=== PATIENT | female | born 1995 | race Caucasian/White ===

== ENCOUNTER 2019-09-14 10:24 | Observation (INO) | payer MEDICAID, OTHER ==
[2019-09-14] VITALS (17 sets, daily range): BP systolic 112–130; BP diastolic 64–78
[~2019-09-14] VITALS: Ht 177.8 cm; Wt 113.6 kg
[~2019-09-14 10:24] MED LIST: KEP500T PO; NO HOME MEDS; [UNRECOGNIZED DRUG - CODE] PO
[2019-09-14] MEDS ORDERED: ondansetron/PF 4mg/2ml inj IV ONE (10:50)
[2019-09-14] MEDS ORDERED: normal saline 1000ML IV soln IVB ONE (10:50)
[2019-09-14 11:24] LABS: BASOPHILS # (AUTO) 0.1 X10'3 (0-0.2); BASOPHILS % (AUTO) 0.9 % (0-1); EOSINOPHILS # (AUTO) 0.1 X10'3 (0-0.9); EOSINOPHILS % (AUTO) 0.7 % (0-6); HEMATOCRIT 40.3 % (35.0-45.0); HEMOGLOBIN 13.6 g/dl (12.0-16.0); LYMPHOCYTES % (AUTO) 18.7 % (21-51); MEAN CORPUSCULAR HEMOGLOBIN 28.7 PG (27.0-31.0); MEAN CORPUSCULAR HGB CONC 33.8 g/dL (33.0-36.5); MEAN PLATELET VOLUME 7.8 FL (7.4-10.4); MONOCYTES # (AUTO) 0.6 X10'3 (0-0.9); MONOCYTES % (AUTO) 3.9 % (2-12); NEUTROPHILS # (AUTO) 12.2 X10'3 (1.8-7.7); NEUTROPHILS % (AUTO) 75.8 % (42-75); PLATELET COUNT 295 X10'3 (140-440); RED BLOOD COUNT 4.74 X10'6 (4.20-5.60); RED CELL DISTRIBUTION WIDTH 12.7 % (11.5-14.5); WHITE BLOOD COUNT 16.1 X10'3 (4.5-11.0)
[2019-09-14 11:27] LABS: CLARITY,URINE SLIGHTLY CLOUDY (Clear); COLOR,URINE YELLOW (Yellow); GLUCOSE, URINE NEGATIVE (Neg); KETONES,URINE NEGATIVE (Neg); LEUKOCYTE ESTERASE ,URINE NEGATIVE (Neg); NITRITES, URINE NEGATIVE (Neg); OCCULT BLOOD,URINE NEGATIVE (Neg); PROTEIN,URINE NEGATIVE (Neg); UROBILINOGEN,URINE 0.2 E.U/dL (0.2-1.0)
[2019-09-14 11:30] LABS: URINE HCG NEGATIVE (NEG)
[2019-09-14 11:32] LABS: UA COLLECTION TYPE CLN CATCH MIDSTREAM
[2019-09-14 11:35] LABS: BACTERIA,URINE 2+ /HPF (Neg); MUCUS STRANDS MODERATE /LPF (Neg); RBC,URINE 0-2 /HPF (0-2); SQUAMOUS EPITHELIAL CELL,UR MANY /LPF (FEW); WBC,URINE 0-4 /HPF (0-4)
[2019-09-14 11:39] LABS: ALANINE AMINOTRANSFERASE 23 U/L (12-78); ALBUMIN 3.6 G/DL (3.4-5.0); ALBUMIN/GLOBULIN RATIO 0.8 (1.1-1.5); ALKALINE PHOSPHATASE 89 IU/L (46-116); ANION GAP 10 (8-16); ASPARTATE AMINO TRANSFERASE 15 U/L (10-37); BILIRUBIN,TOTAL 0.5 MG/DL (0.1-1.0); BLOOD UREA NITROGEN 10 MG/DL (7-18); BUN/CREATININE RATIO 12.7 (6.6-38.0); CALCIUM 8.8 MG/DL (8.5-10.1); CHLORIDE 103 MMOL/L (99-107); CREATININE 0.79 MG/DL (0.40-0.90); GLUCOSE 98 MG/DL (70-104); LIPASE 71 U/L (73-393); POTASSIUM 3.7 MMOL/L (3.5-5.1); SODIUM 138 MMOL/L (135-145); TOTAL CARBON DIOXIDE 25.4 MMOL/L (24-32); TOTAL PROTEIN 8.1 G/DL (6.4-8.2); eGFR 90 ML/MIN
[2019-09-14] MEDS ORDERED: ketorolac trometh. 30mg/ml inj. IV ONE (12:00)
[2019-09-14] MEDS ORDERED: piperacillin/tazo 3.375gm/50ml 50 ML IV ONE (12:15)
[2019-09-14] MEDS ORDERED: normal saline 1000ML IV soln IV ONE (12:15)
[2019-09-14] MEDS ORDERED: normal saline 1000ml 1,000 ML IV SCH (12:33)
[2019-09-14] MEDS ORDERED: ondansetron/PF 4mg/2ml inj IV PRN ×2 (12:35→13:20)
[2019-09-14] MEDS ORDERED: magnesium Cl slow-release 64mg tablet PO PRN (12:35)
[2019-09-14] MEDS ORDERED: magnesium 4gm in 100ml NS 100 ML IV PRN (12:35)
[2019-09-14] MEDS ORDERED: magnesium 2GM in 50ml NS 50 ML IV PRN (12:35)
[2019-09-14] MEDS ORDERED: potassium CL 10mEq/100ml bag 100 ML IV PRN ×2 (12:35)
[2019-09-14] MEDS ORDERED: potassium Cl 20 mEq SR tablet PO PRN ×2 (12:35)
[2019-09-14 12:58] LABS: PRE OP PROTIME 10.3 SECONDS (9.0-12.0)
[2019-09-14] MEDS ORDERED: ringers solution, lacted 1,000 ML IV SCH (13:16)
[2019-09-14] MEDS ORDERED: morphine 2 MG/ML inj. syringe IV PRN (13:20)
[2019-09-14] MEDS ORDERED: hydrALAZINE 20mg/ml inj. IV PRN (13:20)
[2019-09-14] MEDS ORDERED: labetalol 20mg/4ml (5mg/ml) syringe IV PRN (13:20)
[2019-09-14] MEDS ORDERED: fentaNYL/PF 50MCG/1 ML 2ML syringe IV PRN ×2 (13:20)
[2019-09-14] MEDS ORDERED: morphine 4 MG/ML inj SYRINge IV PRN (13:20)
[2019-09-14] MEDS ORDERED: BUPIVAcaine/PF 2.5 mg/ml (0.25%) 30ml vial ONE (13:39)
[2019-09-14] MEDS ORDERED: midazolam 2 mg/2 ml injection ONE (14:03)
[2019-09-14] MEDS ORDERED: LIDOcaine 2% (20mg/ml) 5ml vial ONE (14:04)
[2019-09-14] MEDS ORDERED: dexamethasone sod phosphate 4mg/ml inj. ONE (14:04)
[2019-09-14] MEDS ORDERED: rocuronium 10mg/ml inj IV ONE (14:04)
[2019-09-14] MEDS ORDERED: propofol inj 20 ML IV ONE (14:04)
[2019-09-14] MEDS ORDERED: morphine 10mg/ml inj. ONE (14:04)
[2019-09-14] MEDS ORDERED: glycopyrrolate 0.2mg/ml inj ONE (14:04)
[2019-09-14] MEDS ORDERED: ondansetron/PF 4mg/2ml inj ONE (14:07)
[2019-09-14] MEDS ORDERED: neostigmine methylsulfate 1 MG/ML 10ml vial ONE (14:08)
[2019-09-14] MEDS ORDERED: fentaNYL/PF 50MCG/1 ML 2ML syringe ONE (14:43)
--- NOTE | 2019-09-14 14:49 | NUR ---
Received from OR via [facility], accompanied by Anesthesiologist DR ARREDONDO and report given by Anesthesiologist. PT DROWSY, DENIES PAIN, ABDOMEN W/3 LAP SITES W/BANDAIDS CDI. Addendum: 09/14/19 at 1650 by Alma Beltran RN Amended: Links added.
--- NOTE | 2019-09-14 16:29 | NUR ---
Report called to receiving nurse. Transferred via [facility], 1 BAG OF PERSONAL Belongings, BROWN PURSE, CELL PHONE, I-PAD SENT W/PT TO ROOM 348A, PT WAS ABLE TO AMBULATE FROM GURNEY TO BED W/O DIFFICULTY, CALL LIGHT GIVEN, BLL, SIDE RAILS UP X 2, PT ORIENTED TO SAFETY AND ROOM, RECEIVING RN AT BEDSIDE TO RECEIVE PT. Special Issues communicated to receiving nurse. YES. Addendum: 09/14/19 at 1657 by Alma Beltran RN Amended: Links added.
--- NOTE | 2019-09-14 16:30 | NUR ---
received Pt via [facility] from recovery awake and alert. Pt amb from door to bed. Call light in reach bed low, discussed post op POC. Pt wishes to be DC when criteria met. Dr Serrato and Dr Mccarty OK'd for DC if pt want to.
[2019-09-14] MEDS ORDERED: HYDROcodone/acetaminophen 5mg/325mg tablet PO PRN (16:35)
--- NOTE | 2019-09-14 17:54 | NUR ---
Problems reprioritized. Patient report given, questions answered & plan of care reviewed with Alejandra RN.
--- NOTE | 2019-09-14 19:30 | NUR ---
PATIENT STABLE AND APPROPRIATE FOR DISCHARGE HOME. IV REMOVED, ALL BELONGINGS TAKEN FROM THE ROOM. DC INSTRUCTIONS GIVEN AND REVIEWED WITH PATIENT.
[2019-09-14] MEDS ORDERED: K and/or MAG REPLACEMENT MC SCH (20:00)
== END 2019-09-14 19:20 | disposition home or self-care (01) ==
LOC: ER 10:25 → INTOOBSV 12:33 → ED HOLD 12:33 → SUR 3N 16:25
PROVIDERS: ADMIT Internal Medicine; ATTEND Internal Medicine
DX: K35.80 Unspecified acute appendicitis (principal); R11.2 Nausea with vomiting, unspecified; R19.7 Diarrhea, unspecified; G40.909 Epilepsy, unspecified, not intractable, without status epilepticus; F32.9 Major depressive disorder, single episode, unspecified; Z79.899 Other long term (current) drug therapy
CPT/HCPCS: 36415; 44970; 71045; 74176; 76700; 80053; 81001; 81025; 83605; 83690; 84145; 85025; 85610; 86885; 86900; 86901; 87040; 87081; 96361; 96365; 96375; 99285; G0378; J1100; J1885; J2001; J2250; J2270; J2405; J2543; J2704; J2710; J3010; J3490; J7030; J7120; A4215; A4618; A7000

== ENCOUNTER 2023-01-16 22:54 | Emergency (ER) | payer SELFPAY ==
[~2023-01-16] VITALS: Ht 177.8 cm; Wt 62.3 kg
[~2023-01-16 22:54] MED LIST changes: -KEP500T PO; -[UNRECOGNIZED DRUG - CODE] PO
[2023-01-16 22:55] VITALS: TEMP 97.8
[2023-01-16] MEDS ORDERED: normal saline 1000ML IV soln IVB ONE (23:05)
[2023-01-16] MEDS ORDERED: ondansetron/PF 4mg/2ml inj IV ONE (23:05)
[2023-01-16] MEDS ORDERED: LIDOcaine Viscous 15ml cup MM PRN (23:10)
[2023-01-16] MEDS ORDERED: mag hydrox/Alum hydrox/simeth 30ml oral suspension PO ONE (23:10)
[2023-01-16] MEDS ORDERED: famotidine 20mg tablet PO ONE (23:10)
[2023-01-16 23:53] LABS: BASOPHILS # (AUTO) 0.1 X10'3 (0-0.2); BASOPHILS % (AUTO) 0.3 % (0-1); EOSINOPHILS # (AUTO) 0.2 X10'3 (0-0.9); EOSINOPHILS % (AUTO) 0.8 % (0-6); HEMATOCRIT 42.6 % (35.0-45.0); HEMOGLOBIN 13.8 g/dl (12.0-16.0); LYMPHOCYTES # (AUTO) 1.3 X10'3 (1.1-4.8); LYMPHOCYTES % (AUTO) 7.1 % (21-51); MEAN CORPUSCULAR HEMOGLOBIN 25.7 PG (27.0-31.0); MEAN CORPUSCULAR HGB CONC 32.4 g/dL (33.0-36.5); MEAN CORPUSCULAR VOLUME 79.4 FL (78-98); MEAN PLATELET VOLUME 7.8 FL (7.4-10.4); MONOCYTES # (AUTO) 0.9 X10'3 (0-0.9); NEUTROPHILS # (AUTO) 16.4 X10'3 (1.8-7.7); NEUTROPHILS % (AUTO) 86.8 % (42-75); PLATELET COUNT 349 X10'3 (140-440); RED BLOOD COUNT 5.37 X10'6 (4.20-5.60); RED CELL DISTRIBUTION WIDTH 14.8 % (11.5-14.5); WHITE BLOOD COUNT 18.9 X10'3 (4.5-11.0)
[2023-01-16] MEDS ORDERED: pantoprazole 40 MG vial IV ONE (23:55)
[2023-01-17 00:22] LABS: ALANINE AMINOTRANSFERASE 26 U/L (12-78); ALBUMIN 3.8 G/DL (3.4-5.0); ALBUMIN/GLOBULIN RATIO 0.8 (1.1-1.5); ALKALINE PHOSPHATASE 84 IU/L (46-116); ANION GAP 12 (8-16); ASPARTATE AMINO TRANSFERASE 13 U/L (10-37); BILIRUBIN,TOTAL 0.5 MG/DL (0.1-1.0); BLOOD UREA NITROGEN 15 MG/DL (7-18); BUN/CREATININE RATIO 18.5 (10.0-20.0); CALCIUM 8.7 MG/DL (8.5-10.1); CHLORIDE 102 MMOL/L (99-107); CREATININE 0.81 MG/DL (0.40-0.90); GLUCOSE 105 MG/DL (70-104); LIPASE 35 U/L (16-77); POTASSIUM 3.3 MMOL/L (3.5-5.1); SODIUM 139 MMOL/L (135-145); TOTAL CARBON DIOXIDE 25.1 MMOL/L (24-32); TOTAL PROTEIN 8.8 G/DL (6.4-8.2); eCRCL 103 ML/MIN; eGFR 85 ML/MIN
[2023-01-17] MEDS ORDERED: ketorolac trometh. 30mg/ml inj. IV ONE (01:00)
[2023-01-17] MEDS ORDERED: metoclopramide 5 mg/ml inj IV ONE (01:10)
[2023-01-17] MEDS ORDERED: acetaminophen 1,000mg/100ml IV 100 ML IV ONE (01:10)
[2023-01-17] MEDS ORDERED: ONDA8TAB13 PO (01:41)
[2023-01-17 01:51] VITALS: BP 148/89; PULSE 100; O2SAT 96
[2023-01-17 02:00] VITALS: RESP 18
== END 2023-01-17 02:04 | disposition home or self-care (01) ==
LOC: ER 22:54
DX: A08.4 Viral intestinal infection, unspecified (principal); R10.13 Epigastric pain; R11.2 Nausea with vomiting, unspecified; G40.909 Epilepsy, unspecified, not intractable, without status epilepticus; Z90.49 Acquired absence of other specified parts of digestive tract; Z79.899 Other long term (current) drug therapy
CPT/HCPCS: 36415; 71045; 80053; 83690; 84145; 85025; 96361; 96365; 96375; 99284; C9113; J0131; J2405; J2765; J7030; 96374